=== PATIENT | female | born 1955 ===

== ENCOUNTER → 2020-12-31 | Day surgery (SDC) | payer OTHER ==
[~2020-12-31] MED LIST: ATORVASTATIN CA10 MG PO; FOSAMAX70 MG PO; GABAPENTIN600 MG PO; IBUPROFEN800 MG PO; LEVOTHYROXINE100 MCG PO; OMEPRAZOLE40 MG PO; PRAMIPEXOLE DI0.5 MG PO; VOLTAREN **OUT50 MG PO; ZOLOFT100 M1 PO; ZYRTEC10 MG PO
[2020-12-31 11:43] LABS: HCT 40.1 % (37.0-47.0); HGB 12.6 g/dl (12.5-16.0); MCH 30.7 pg (25.0-31.0); MCHC 31.4 g/dL (32.0-36.0); MCV 97.8 fL (78.0-100.0); MPV 9.9 fL (6.0-9.5); RBC 4.1 M/uL (4.20-5.40); RDW 14.4 % (11.5-14.0)
[2020-12-31 13:28] LABS: ALBUMIN 3.2 g/dL (3.4-5.0); BILIRUBIN - TOTAL 0.3 mg/dL (0.2-1.0); BUN/CREAT RATIO (CALC) 20.7 RATIO; CREATININE 0.87 mg/dL (0.51-0.95); GLOBULIN (CALCULATION) 3.6 g/dL; POTASSIUM 4.4 mmol/L (3.5-5.1); TOTAL PROTEIN 6.8 g/dL (6.4-8.2)
== END | disposition home or self-care (01) ==
LOC: FAS 10:30
PROVIDERS: Surgery
DX: K29.50 Unspecified chronic gastritis without bleeding (principal); K21.9 Gastro-esophageal reflux disease without esophagitis; M19.90 Unspecified osteoarthritis, unspecified site; M81.0 Age-related osteoporosis without current pathological fracture; E78.00 Pure hypercholesterolemia, unspecified; E03.9 Hypothyroidism, unspecified; Z20.822 Contact with and (suspected) exposure to COVID-19; Z87.19 Personal history of other diseases of the digestive system; Z88.5 Allergy status to narcotic agent; Z79.899 Other long term (current) drug therapy; Z86.59 Personal history of other mental and behavioral disorders; Z86.69 Personal history of other diseases of the nervous system and sense organs; Z96.669 Presence of unspecified artificial ankle joint; Z90.49 Acquired absence of other specified parts of digestive tract; Z87.891 Personal history of nicotine dependence
CPT/HCPCS: 36415; 80053; 88305; 88342; J2704